=== PATIENT | male | born 1965 | race Caucasian/White ===

== ENCOUNTER 2017-02-24 21:37 | Emergency (ER) | payer SELFPAY ==
[~2017-02-24 21:37] MED LIST: CLIN1CAP6 OR; LORT5TAB PO
[2017-02-24 21:38] VITALS: BP 135/78; PULSE 104; RESP 16; TEMP 99.2; O2SAT 94
[2017-02-24] MEDS ORDERED: CEPH-460 PO (22:29)
[2017-02-24] MEDS ORDERED: CEPHALEXIN MONOHYDRATE 500 MG CAP PO ONE (22:30)
--- NOTE | 2017-02-24 22:30 | PD ---
HPI Chief Complaint: Skin Problem Time Seen by Provider: 22:07 Travel History International Travel<30 days: No Contact w/Intl Traveler<30days: No Traveled to known affect area: No History of Present Illness HPI Patient is a 51-year-old male presenting to emergency for evaluation of right fourth finger nail infection. Patient states it started 4 days ago, he reports that it continues to ache and throb so he let his daughter drainage this evening. When the pain did not improve he presented to the emergency department for evaluation. Patient denies any fever, chills, nausea, vomiting. He reports the pain as a 6 out of 10 and again states it's aching and throbbing. He denies any significant past medical history. PFSH Past Medical History Medical History: Denies Significant Hx Social History Alcohol Use: Yes Tobacco Use: Yes Substance Use: No Allergies-Medications (Allergen,Severity, Reaction): Coded Allergies: No Known Allergies (Unverified , 02/24/17) Reported Meds & Prescriptions Reported Meds & Active Scripts Active Lortab 5/500 (Acetaminophen/Hydrocodone Bitart) 5 Mg/500 Mg Tab 1 Tab PO Q6HPRN Clindamycin Hcl (Clindamycin HCl) 300 Mg Cap 300 Mg OR QID 10 Days Review of Systems Except as stated in HPI: all other systems reviewed are Neg Musculoskeletal: Positive: Edema Skin: Positive Change in Pigmentation, Positive Change in nails Physical Exam Narrative GENERAL: Overweight, well-developed, alert male. Resting comfortably in no acute distress. SKIN: Warm and dry. Right fourth finger nail bed on the medial aspect is edematous and mildly erythematous. Mild fluctuance noted. HEAD: Normocephalic. EYES: No scleral icterus. No injection or drainage. NECK: Supple, trachea midline. No JVD or lymphadenopathy. CARDIOVASCULAR: Regular rate and rhythm without murmurs, gallops, or rubs. RESPIRATORY: Breath sounds equal bilaterally. No accessory muscle use. GASTROINTESTINAL: Abdomen soft, non-tender, nondistended. MUSCULOSKELETAL: No cyanosis, or edema. BACK: Nontender without obvious deformity. No CVA tenderness. Data Data Last Documented VS Vital Signs Date Time Temp Pulse Resp B/P (MAP) Pulse Ox O2 Delivery O2 Flow Rate FiO2 02/24/17 21:38 99.2 104 16 135/78 (97) 94 Room Air Orders Orders Cephalexin (Keflex) (02/24/17 22:30) MDM Medical Decision Making Medical Screen Exam Complete: Yes Emergency Medical Condition: Yes Interpretation(s) Vital Signs Date Time Temp Pulse Resp B/P (MAP) Pulse Ox O2 Delivery O2 Flow Rate FiO2 02/24/17 21:38 99.2 104 16 135/78 (97) 94 Room Air Differential Diagnosis Cellulitis versus abscess versus paronychia versus other Narrative Course Patient presented for evaluation of right fourth fingernail infection. Please see procedure report I&D. Patient was given first dose of Keflex in the emergency department. He was encouraged to soak finger in warm water. He was encouraged to complete full course of antibiotics as prescribed. He was advised to avoid cutting fingernails too short. He was advised to avoid picking at the wound. He was advised to follow-up with his primary doctor. He was also encouraged to return to emergency department for any new or worsening symptoms. Patient verbalized understanding of instructions. Patient stable for discharge. Procedures Procedure Narrative After the risks and benefits were discussed the following procedure was performed: INCISION AND DRAINAGE OF ABSCESS: The area was prepped and was sterilely draped. A subcutaneous wheal of 1 % Xylocaine with a total number 0.25 mL was used to anesthetize the area. The area was properly anesthetized. A number 11 scalpel was used to make a puncture across the area of the abscess. No purulent drainage noted. Dressing applied. Patient tolerated procedure well. Diagnosis Primary Impression: Paronychia of finger Qualified Codes: L03.011 - Cellulitis of right finger Referrals: Primary Care Physician 3 days Patient Instructions: General Instructions, Paronychia (ED) Additional Instructions: Follow-up with your primary doctor Soak finger in warm water Apply topical antibiotic ointment and Band-Aid Complete full course of antibiotics as prescribed Do not pick at fingernail, avoid cutting fingernails too short Return to emergency department for any new or worsening symptoms Med/Other Pt SpecificInfo: Prescription(s) given Scripts Cephalexin (Keflex) 500 Mg Cap 500 MG PO Q12H for Infection for 10 Days, #20 CAP 0 Refills Prov: Mylene Trevino 02/24/17 Disposition: 01 DISCHARGE HOME Condition: Stable Mylene Trevino Feb 24, 2017 22:30
[2017-02-24] MEDS ORDERED: LAMI250T PO (22:32)
== END 2017-02-24 23:00 | disposition home or self-care (01) ==
LOC: NEPK 21:37
DX: L03.011 Cellulitis of right finger (principal); Z72.0 Tobacco use
CPT/HCPCS: 10060